=== PATIENT | female | born 1995 | race African-American/Black ===

== ENCOUNTER 2017-01-19 11:14 | Observation (INO) | payer MEDICAID ==
[~2017-01-19] VITALS: Ht 160 cm; Wt 59.0 kg
[2017-01-19] MEDS ORDERED: IRON1CAP21 PO (12:00)
[2017-01-19] MEDS ORDERED: PNV1TABL76 MT (12:00)
[2017-01-19 13:03] LABS: CLARITY URINE CLEAR (CLEAR); COLOR URINE YELLOW (YELLOW); GLUCOSE URINE NEGATIVE (NEGATIVE); KETONES URINE NEGATIVE (NEGATIVE); LEUKOCYTE ESTERASE URINE NEGATIVE (NEGATIVE); NITRITE URINE NEGATIVE (NEGATIVE); OCCULT BLOOD URINE 2+ (NEGATIVE); PH URINE 7.5 (4.5-8.0); PROTEIN URINE NEGATIVE (NEGATIVE); SPECIFIC GRAVITY URINE 1.006 (1.005-1.030); UROBILINOGEN URINE 0.2 E.U./dL (0.2-1.0)
== END 2017-01-19 14:00 | disposition home or self-care (01) ==
LOC: L&D 11:14
PROVIDERS: ADMIT Obstetrics & Gynecology; ATTEND Obstetrics & Gynecology
DX: O46.90 Antepartum hemorrhage, unspecified, unspecified trimester (principal); O26.899 Other specified pregnancy related conditions, unspecified trimester; R10.9 Unspecified abdominal pain; Z3A.00 Weeks of gestation of pregnancy not specified
CPT/HCPCS: 81001; 99281; G0378

== ENCOUNTER 2017-03-23 00:42 | Inpatient (IN) | payer MEDICAID ==
[~2017-03-23] VITALS: Ht 152.4 cm; Wt 79.8 kg
[~2017-03-23 00:42] MED LIST: IRON1CAP21 PO; PNV1TABL76 MT
[2017-03-23] MEDS ORDERED: ALBU05 IH (01:25)
[2017-03-23] MEDS ORDERED: DEXT 5%/LACTATED RINGERS 1,000 ML IV SCH (02:59)
[2017-03-23] MEDS ORDERED: LACTATED RINGERS 1,000 ML IV SCH (02:59)
[2017-03-23] MEDS ORDERED: METHYLERGONOVINE MALEATE 0.2 MG/ML IM PRN (03:00)
[2017-03-23] MEDS ORDERED: MISOPROSTOL 100MCG TABLET VG PRN (03:00)
[2017-03-23] MEDS ORDERED: LIDOCAINE HCL 1% 20ML VIAL (Pyxis) INJ INFIL PRN (03:00)
[2017-03-23] MEDS ORDERED: NALOXONE HCL 0.4 MG/ML 1ML VIAL IM PRN (03:00)
[2017-03-23] MEDS ORDERED: DEXTROSE IV SCH (03:30)
[2017-03-23] MEDS ORDERED: WATER IV SCH (03:30)
[2017-03-23] MEDS ORDERED: PENICILLIN POTASSIUM IV SCH (03:30)
[2017-03-23] MEDS: BUTORPHANOL TARTRATE 2 MG/ML VIAL IV PRN ×2 (04:02→06:28)
[2017-03-23 04:39] LABS: BASOPHILS % 0.3 % (0.0-2.0); EOSINOPHILS % 0.9 % (0.0-5.0); HEMATOCRIT. 37.8 % (36.0-48.0); HEMOGLOBIN. 12.4 g/dL (12.0-16.0); LYMPHOCYTES % 31.8 % (20.0-50.0); MEAN CORPUSCULAR HEMOGLOBIN 28.4 pg (28.0-32.0); MEAN CORPUSCULAR VOLUME 86.5 fL (81.0-99.0); MEAN PLATELET VOLUME 8.3 fl (7.4-10.4); MONOCYTES % 6.9 % (2.0-8.0); NEUTROPHILS % 60.1 % (40.0-76.0); PLATELET 316 x1000/uL (130-400); RED BLOOD CELL COUNT 4.37 mill/uL (4.2-5.4); RED CELL DISTRIBUTION WIDTH 15.4 % (11.6-14.6)
[2017-03-23 04:43] LABS: CLARITY URINE CLEAR (CLEAR); COLOR URINE YELLOW (YELLOW); KETONES URINE NEGATIVE (NEGATIVE); LEUKOCYTE ESTERASE URINE 1+ (NEGATIVE); NITRITE URINE NEGATIVE (NEGATIVE); OCCULT BLOOD URINE NEGATIVE (NEGATIVE); PROTEIN URINE 1+ (NEGATIVE); SPECIFIC GRAVITY URINE 1.009 (1.005-1.030); UROBILINOGEN URINE 0.2 E.U./dL (0.2-1.0)
[2017-03-23 04:49] LABS: INR 0.9; PARTIAL THROMBOPLASTIN TIME 25.2 sec (23.4-31.0); PROTHROMBIN TIME 9.4 sec (9.4-11.6)
[2017-03-23 05:00] LABS: CHLORIDE 108 mEq/L (98-107)
[2017-03-23 05:11] LABS: *AMPHETAMINES SCREEN URINE NEGATIVE (NEGATIVE); *BARBITURATES SCREEN URINE NEGATIVE (NEGATIVE); *BENZODIAZEPINES SCREEN URINE NEGATIVE (NEGATIVE); *COCAINE SCREEN URINE NEGATIVE (NEGATIVE); CANNABINOID URINE SCREEN NEGATIVE (NEGATIVE); METHADONE URINE SCREEN NEGATIVE (NEGATIVE); OPIATES URINE SCREEN NEGATIVE (NEGATIVE); PHENCYCLIDINE URINE SCREEN NEGATIVE (NEGATIVE)
[2017-03-23 05:13] LABS: CARBON DIOXIDE 19 mEq/L (21-32)
[2017-03-23] MEDS: MAGNESIUM 20 G PREMIX (L & D) 500 ML IV SCH ×3 (05:45→18:15)
[2017-03-23 06:38] LABS: RUBELLA IGG 67.6 IU/mL (4.99-10)
[2017-03-23 06:39] LABS: HEPATITIS B SURFACE ANTIGEN NEGATIVE
[2017-03-23] MEDS ORDERED: PENICILLIN G POTASSIUM 2.5 MMU in DEXTROSE 5% WATER 50 ML IV SCH (07:00)
[2017-03-23] MEDS ORDERED: OXYTOCIN 10 UNITS/ML 1ML ONE (10:34)
[2017-03-23] MEDS ORDERED: CARBOPROST TROMETHAMINE 250 MCG/ML AMPUL IM ONE (10:34)
[2017-03-23] MEDS ORDERED: DEXT 5%/LR + PITOCIN 20UNITS/L 1,000 ML IV SCH (10:45)
[2017-03-23] MEDS ORDERED: FENTANYL CITRATE/PF 50MCG/ML 2ML VIAL ONE (14:28)
[2017-03-23] MEDS ORDERED: MORPHINE SULFATE/PF 1MG/ML 10ML AMP ONE (14:28)
[2017-03-23] MEDS ORDERED: PROPOFOL 200MG/20ML VIAL IV ONE (14:55)
[2017-03-23] MEDS ORDERED: ROCURONIUM BROMIDE 10MG/ML VIAL 5ML IV ONE ×2 (14:56→18:43)
[2017-03-23] MEDS ORDERED: NEOSTIGMINE METHYLSULFATE 1MG/ML 10 ML VIAL ONE (15:28)
[2017-03-23] MEDS ORDERED: GLYCOPYRROLATE 0.2 MG/ML 2ML VIAL ONE (15:28)
[2017-03-23] MEDS ORDERED: CEFAZOLIN SODIUM 1000MG/VIAL ONE (15:29)
[2017-03-23] MEDS ORDERED: MAGNESIUM 20 G PREMIX (L & D) 500 ML IV SCH (15:31)
[2017-03-23] MEDS ORDERED: ONDANSETRON HCL 4MG/2ML VIAL ONE (15:42)
[2017-03-23] MEDS ORDERED: BISACODYL 10MG SUPP PR PRN (15:45)
[2017-03-23] MEDS ORDERED: HYDROMORPHONE HCL/PF 2MG/ML CPJ IM PRN (15:45)
[2017-03-23] MEDS ORDERED: DIPHENHYDRAMINE 25MG CAPSULE PO PRN (15:45)
[2017-03-23] MEDS ORDERED: ONDANSETRON HCL 4MG/2ML VIAL IV PRN (15:45)
[2017-03-23] MEDS ORDERED: LANOLIN OINT 0.25 GM TUBE TOP PRN (15:45)
[2017-03-23] MEDS ORDERED: HYDROMORPHONE HCL/PF 2MG/ML (OR) ONE (16:16)
[2017-03-23] MEDS ORDERED: SODIUM CHLORIDE 0.9% 10ML VIAL ONE (16:17)
[2017-03-23] MEDS ORDERED: ALBUTEROL (0.083%) 2.5MG/3ML NEB HHN NR (16:45)
[2017-03-23] MEDS ORDERED: KETOROLAC 30MG/ML VIAL IV PRN (18:15)
[2017-03-23] MEDS: MORPHINE SULFATE 4 MG/ML CPJ (NOT FOR IM USE) IV PRN ×2 (18:34→22:40)
[2017-03-23] MEDS: DOCUSATE SODIUM 100MG CAPSULE PO SCH (21:53)
[2017-03-23 22:00] VITALS: BP 157/82
[2017-03-23] MEDS ORDERED: CEFAZOLIN 2,000 MG in DEXT 5% WATER 100 ML IV SCH (23:00)
[2017-03-24] VITALS (15 sets, daily range): BP systolic 126–159; BP diastolic 77–107
[2017-03-24] MEDS: CEFAZOLIN 2,000 MG in SODIUM CHLORIDE 0.9% 100 ML IV SCH ×4 (01:53→23:28)
[2017-03-24] MEDS: MAGNESIUM/ALUMINUM HYDROXIDE/SIMETHICONE 30ML UDC PO SCH ×5 (02:02→21:45)
[2017-03-24] MEDS: SIMETHICONE 80MG TABLET CHEW PO SCH ×5 (02:34→21:44)
[2017-03-24] MEDS: DEXT 5%/LR + PITOCIN 20UNITS/L 1,000 ML IV SCH ×2 (03:13→06:34)
[2017-03-24] MEDS: MAGNESIUM 20 G PREMIX (L & D) 500 ML IV SCH (03:25)
[2017-03-24 04:43] LABS: BASOPHILS % 0.1 % (0.0-2.0); EOSINOPHILS % 0.1 % (0.0-5.0); HEMATOCRIT. 32.6 % (36.0-48.0); HEMOGLOBIN. 10.7 g/dL (12.0-16.0); LYMPHOCYTES % 8.5 % (20.0-50.0); MEAN CORPUSCULAR HEMOGLOBIN 28.4 pg (28.0-32.0); MEAN CORPUSCULAR VOLUME 86.3 fL (81.0-99.0); MEAN PLATELET VOLUME 7.8 fl (7.4-10.4); MONOCYTES % 5.4 % (2.0-8.0); NEUTROPHILS % 85.9 % (40.0-76.0); PLATELET 296 x1000/uL (130-400); RED BLOOD CELL COUNT 3.78 mill/uL (4.2-5.4); RED CELL DISTRIBUTION WIDTH 15.4 % (11.6-14.6)
[2017-03-24] MEDS: MORPHINE SULFATE 4 MG/ML CPJ (NOT FOR IM USE) IV PRN (06:33)
[2017-03-24] MEDS: HYDROCODONE/ACETAMINOPHEN 5/325MG TABLET PO PRN (07:48)
[2017-03-24] MEDS: PRENATAL VIT/FE FUMARATE/FA TABLET PO SCH (08:04)
[2017-03-24] MEDS: ACETAMINOPHEN WITH CODEINE 300/30MG TABLET PO PRN (09:23)
[2017-03-24] MEDS: LABETALOL HCL 100MG TABLET PO SCH (11:53)
[2017-03-24] MEDS: FERROUS SULFATE 325MG TABLET PO SCH ×2 (11:53→17:59)
[2017-03-24] MEDS: IBUPROFEN 400MG TABLET PO PRN ×2 (12:08→21:45)
[2017-03-24] MEDS: LACTATED RINGERS 1,000 ML IV SCH (13:34)
[2017-03-24] MEDS ORDERED: MAGNESIUM 20 G PREMIX (L & D) 500 ML IV SCH (16:00)
[2017-03-24] MEDS: DOCUSATE SODIUM 100MG CAPSULE PO SCH (21:44)
[2017-03-25] MEDS: LACTATED RINGERS 1,000 ML IV SCH ×2 (00:36→08:04)
[2017-03-25] MEDS: LABETALOL HCL 100MG TABLET PO SCH ×2 (00:43→12:07)
[2017-03-25] MEDS: ACETAMINOPHEN WITH CODEINE 300/30MG TABLET PO PRN ×2 (01:44→21:16)
[2017-03-25 06:26] VITALS: BP 137/74
[2017-03-25] MEDS: IBUPROFEN 400MG TABLET PO PRN ×2 (06:48→12:08)
[2017-03-25 08:00] VITALS: BP 144/90
[2017-03-25] MEDS: CEFAZOLIN 2,000 MG in SODIUM CHLORIDE 0.9% 100 ML IV SCH ×2 (08:00→15:50)
[2017-03-25] MEDS: MAGNESIUM/ALUMINUM HYDROXIDE/SIMETHICONE 30ML UDC PO SCH ×4 (09:00→21:17)
[2017-03-25] MEDS: PRENATAL VIT/FE FUMARATE/FA TABLET PO SCH (09:55)
[2017-03-25] MEDS: FERROUS SULFATE 325MG TABLET PO SCH ×3 (09:55→17:27)
[2017-03-25] MEDS: SIMETHICONE 80MG TABLET CHEW PO SCH ×4 (09:55→21:18)
[2017-03-25 12:07] VITALS: BP 144/93
[2017-03-25 16:00] VITALS: BP 135/87
[2017-03-25 20:45] VITALS: BP 140/88
[2017-03-25] MEDS: DOCUSATE SODIUM 100MG CAPSULE PO SCH (21:17)
[2017-03-26 00:05] VITALS: BP 133/85
[2017-03-26] MEDS: LABETALOL HCL 100MG TABLET PO SCH ×2 (00:12→08:46)
[2017-03-26 04:10] VITALS: BP 129/82
[2017-03-26 07:19] LABS: HEMATOCRIT. 27.5 % (36.0-48.0); HEMOGLOBIN. 9.2 g/dL (12.0-16.0); MEAN CORPUSCULAR HEMOGLOBIN 29.5 pg (28.0-32.0); MEAN CORPUSCULAR VOLUME 88.1 fL (81.0-99.0); PLATELET 256 x1000/uL (130-400); RED BLOOD CELL COUNT 3.13 mill/uL (4.2-5.4); RED CELL DISTRIBUTION WIDTH 15.3 % (11.6-14.6)
[2017-03-26 08:00] VITALS: BP 146/89
[2017-03-26] MEDS: MAGNESIUM/ALUMINUM HYDROXIDE/SIMETHICONE 30ML UDC PO SCH (08:45)
[2017-03-26] MEDS: FERROUS SULFATE 325MG TABLET PO SCH (08:46)
[2017-03-26] MEDS: PRENATAL VIT/FE FUMARATE/FA TABLET PO SCH (08:50)
[2017-03-26] MEDS: HYDROCODONE/ACETAMINOPHEN 5/325MG TABLET PO PRN (08:51)
[2017-03-26] MEDS: IBUPROFEN 400MG TABLET PO PRN (12:37)
[2017-03-26 12:39] VITALS: BP 129/82
[2017-03-26] MEDS: ACETAMINOPHEN WITH CODEINE 300/30MG TABLET PO PRN (12:39)
[2017-03-26 22:11] LABS: PLATELET ESTIMATE NORMAL
== END 2017-03-26 13:10 | disposition home or self-care (01) | DRG 540 ==
LOC: L&D 00:42 → OBSVTOIN 00:42 → 3WST 20:35 → 7EST PP/OB 03-24 18:11
PROVIDERS: ADMIT Obstetrics & Gynecology; ATTEND Obstetrics & Gynecology
PROC: 10D00Z1 Extraction of Products of Conception, Low, Open Approach (ICD-10-PCS; principal; 2017-03-23 14:13)
DX: O13.4 Gestational [pregnancy-induced] hypertension without significant proteinuria, complicating childbirth (principal); O32.4XX0 Maternal care for high head at term, not applicable or unspecified; O64.8XX0 Obstructed labor due to other malposition and malpresentation, not applicable or unspecified; Z37.0 Single live birth; Z3A.39 39 weeks gestation of pregnancy; Z79.899 Other long term (current) drug therapy
CPT/HCPCS: 36415; 80053; 80305; 81001; 83735; 84550; 85007; 85025; 85027; 85384; 85610; 85730; 86592; 86703; 86762; 86850; 86900; 87086; 87340; 88307; 94640; A4216; J0595; J0690; J1170; J2270; J2274; J2405; J2540; J2590; J2704; J2710; J3010; J3475; J3490; J7040; J7050; J7060; J7120; J7611; A4315

== ENCOUNTER 2019-02-28 08:44 | Emergency (ER) | payer MEDICAID ==
[~2019-02-28] VITALS: Ht 152.4 cm; Wt 75.0 kg
[2019-02-28] MEDS ORDERED: PREDNISONE 20MG TABLET PO STA (10:00)
[2019-02-28] MEDS ORDERED: ALBUTEROL (0.083%) 2.5MG/3ML NEB HHN STA (10:00)
[2019-02-28] MEDS ORDERED: IPRATROPIUM BROMIDE (0.02%) 0.5MG/2.5ML NEB HHN STA (10:00)
[2019-02-28] MEDS ORDERED: IPRATROPIUM BROMIDE (0.02%) 0.5MG/2.5ML NEB ONE (10:38)
[2019-02-28 11:30] VITALS: BP 133/73
== END 2019-02-28 11:30 | disposition home or self-care (01) ==
LOC: ER 08:44
DX: J45.901 Unspecified asthma with (acute) exacerbation (principal); J20.9 Acute bronchitis, unspecified
CPT/HCPCS: 94644; 99285; J7512; J7611; Z7610